=== PATIENT | male | born 1970 | race Caucasian/White ===

== ENCOUNTER → 2017-10-28 | Outpatient (CLI) | payer OTHER ==
[~2017-10-28] MED LIST: ASPIR 8181 M1 PO; BENICAR20 MG PO; CARDIZEM CD240 MG PO; EFFEXOR; EFFEXOR XR150 MG PO; FLEXERIL PO; LAMICTAL; LAMICTAL XR100 MG PO; MOBIC; MOBIC15 MG PO; MULTAQ400 MG PO; SEROQUEL; SEROQUEL 50 MG50 MG PO; TRILEPTAL150 MG PO; ZETIA10 MG PO; [UNRECOGNIZED DRUG - OTHER] PO
--- NOTE | 2017-11-06 09:00 | PAINCON ---
[place] [address] PAIN MANAGEMENT CONSULTATION Name: VALENTINOMARELY L [id number] Admission: 10/28/17 Attend Phys: Connor Navarro DO Discharge: Date of : 68 Report #: [id number] THIS REPORT FOR: //name// CC: TOYA Navarro DATE OF SERVICE: 10/28/2017 REFERRING PHYSICIAN: Toya Tsang MD. CHIEF COMPLAINT: Low back pain, left lower extremity pain and paresthesias. HISTORY OF PRESENT ILLNESS: As you know, the patient is an extremely pleasant 47-year-old male who returns today in followup visit with recurrent low back pain, left lower extremity pain and paresthesias. The patient states he has slow and progressive return of symptoms since of last week. He believes that he may have done something on morning or at afternoon that may have caused a symptom recurrence. By Saturday, his pain was fairly intense. He tried conservative treatment over the weekend, but was unable to see much in the way of benefit. He subsequently made today's appointment to undergo epidural injection under fluoroscopic guidance. He received excellent benefit with the previous epidural injection, 75% improvement in overall pain lasting until this last . ALLERGIES: No known drug allergies. CURRENT MEDICATIONS: Diltiazem, Zetia, Lamictal, baby aspirin, olmesartan, Effexor. SOCIAL HISTORY: The patient denies tobacco, alcohol, IV or illicit drug use. He is working, not receiving workmen's compensation, unaccompanied today. IMAGING: No new imaging available. PHYSICAL EXAMINATION: VITAL SIGNS: Blood pressure 137/101, pulse 70. Respiratory rate 16, unlabored. The patient is 95% on room air, current temperature 98.1 degrees Fahrenheit, height 6 feet 1 inch tall, weight 240.2 pounds, BMI calculated 31.7. GENERAL: Well-developed, well-nourished, well-hydrated, 47-year-old male. He appears stated age, pain is rated today 9/10. HEENT: Normocephalic, atraumatic. Pupils equal, round, reactive to light. EXTREMITIES: Show no clubbing, no cyanosis, no edema. MUSCULOSKELETAL: Lower extremity strength equal and symmetrical 5/5. Giveaway strength noted with hip flexion, knee extension on the left when compared to the right, pain generation noted. Seated straight leg [place] [address] PAIN MANAGEMENT CONSULTATION Name: VALENTINOMARELY LO Room: [facility]#: [id number] Admission: 10/28/17 Attend Phys: Cnonor Navarro DO Discharge: Date of : 68 Report #: [id number] straight leg raising positive. ASSESSMENT: 1. Symptomatic lumbar radiculopathy. 2. Displacement of lumbar intervertebral disk with radiculopathy. 3. Lumbosacral spondylosis with radiculopathy. PLAN: 1. The patient has returned today in followup visit to undergo next in the series of epidural injections under fluoroscopic guidance. The patient reports a 75% improvement in overall pain with epidural injection provided at last visit. The patient has been doing very well and had returned to all activities of daily living prior to the exacerbation of symptoms that began supposedly of last week, intensified on Saturday and then over the weekend. The patient has been advised risks and benefits of this procedure, states understood and wished to proceed. 2. No medication changes were made at today's visit. The patient will continue current medical therapy as previously prescribed. 3. The patient's blood pressure highly elevated today 137/101. Previous blood pressure was noted to be 137/59. I believe the hypertensive issue today is related more to pain, though I have advised the patient to monitor his pressure carefully. Adjustments may need to be necessary in his essential hypertension medications. We will see the patient back in followup visit on an as needed basis. He is to monitor his blood pressure for us. DESCRIPTION OF PROCEDURE: L5-S1 left paramedian epidural steroid injection under fluoroscopic guidance. After obtaining written consent, the patient was taken back to fluoroscopy suite, placed in prone position with pillow under abdomen to decrease lumbar lordosis. Skin overlying lumbosacral area then prepped and draped in aseptic fashion. The lumbar intervertebral spaces were identified by AP fluoroscopy. Skin and subcutaneous tissue overlying target site of injection was anesthetized with 3 mL of 1% lidocaine. A 20-gauge 3-1/2 inch Tuohy needle advanced under fluoroscopic guidance towards the epidural space using left paramedian approach. Epidural space identified using loss of resistance to technique. After negative aspiration for heme or cerebrospinal fluid, 1 mL of Omnipaque was injected. Lumbar epidurogram was confirmed using both AP and lateral fluoroscopy. After negative aspiration for heme or cerebrospinal fluid, 5 mL of a solution containing 2 mL 40 mg per mL, 80 mg total triamcinolone, 3 mL lidocaine 1% injected slowly. Needle retracted jail, flushed with 1 mL of 1% lidocaine and removed. Sterile bandage placed over injection site. No new motor deficits present in lower extremity following the procedure. [address] [address] PAIN MANAGEMENT CONSULTATION Name: MARELY AVELAR [facility] [id number] Admission: 10/28/17 Attend Phys: Connor Navarro DO Discharge: Date of : 68 Report #: [id number] The patient tolerated procedure well, carefully escorted to the recovery room in stable condition. No apparent complications. After meeting discharge criteria, the patient discharged home. <ELECTRONICALLY SIGNED> By: Connor Navarro DO 11/06/17 0900 [id number] [id number] Navarro DO /nt
== END | disposition home or self-care (01) ==
LOC: M.PC 09:00
DX: M51.16 Intervertebral disc disorders with radiculopathy, lumbar region (principal); M47.27 Other spondylosis with radiculopathy, lumbosacral region; Z79.899 Other long term (current) drug therapy; Z79.82 Long term (current) use of aspirin